=== PATIENT | male | born 1950 | race Caucasian/White ===

== ENCOUNTER 2018-10-23 13:25 | Inpatient (IN) | payer OTHER ==
[~2018-10-23] VITALS: Ht 180.3 cm; Wt 87.3 kg
--- NOTE | ~2018-10-23 | D ---
[facility] [place] [address] DISCHARGE SUMMARY Name: CHON BOYER Room #: 523B-B [facility] IN M.R.#: [id number] Admission: 10/23/18 Attend Phys: Ksihan Stevenson DO Discharge: 10/29/18 Date of : 52 Report #: [id number] THIS REPORT FOR: //name// CC: Kishan Stevenson Silvano Sheriff DATE OF SERVICE: 10/29/2018 ATTENDING PHYSICIAN: Kishan Stevenson DO ELECTROENCEPHALOGRAPH TECHNICIAN: Kishan Alberto MD DISCHARGE DIAGNOSES: Major depressive disorder, recurrent, severe degree that is improved; mild neurocognitive disorder; unspecified anxiety. He is discharged to his home. The patient is on regular diet. Aftercare is as follows: The patient is being referred to [facility] program. This will be at [facility] beginning on 10/31/2018 at 11:00 a.m. He will continue care with Ms. Naa Tripathi, psychotherapist. He is reportedly a patient of ____. DISCHARGE ACTIVITY LEVEL: As tolerated. No alcohol, no illicit drugs. MEDICATIONS: As follows: Metoprolol succinate 50 mg p.o. daily for hypertension and rate control; escitalopram 10 mg p.o. daily for anti-depression; trazodone 150 mg for sleep. We discussed progressive taper of cyanocobalamin 1000 mcg p.o. daily, lisinopril 10 mg p.o. daily, risperidone 10 mg p.o. daily, Plavix 75 mg p.o. daily, pantoprazole 40 mg p.o. daily, atorvastatin 40 mg p.o. daily. Most of those he was taking prior to admission, we did switch him from fluoxetine to Lexapro. In addition, the patient has untreated obstructive sleep apnea. This needs to be ruminative as soon as possible. The deleterious health consequences of this were discussed such as specifically how they relate to his current reasons for Psychiatric admission. REASON FOR ADMISSION: Brought to the ED complaining of depression. He has been sleeping more, had been seen in the [facility] ED for a stroke workup about 3 weeks prior. HOSPITAL COURSE: The patient was admitted to Geriatric Psychiatry Unit. The patient maintained relatively euthymic. SLUMS was done and he scored 21/30. I ____ Neuropsych testing by Dr. Marley and again mild neurocognitive disorder was diagnosed. The importance of psychotherapy ____ more intensive aftercare experience, I would like to see him in 2 weeks of PHP ____ 5 days a week. Treatment of his obstructive sleep apnea, issues like this were discussed. His son was also present for family meeting given ____ psychologist. [address] [address] DISCHARGE SUMMARY Name: RSOALINDCHON C Room #: 523B-B [facility] IN M.R.#: [id number] Admission: 10/23/18 Attend Phys: Kishan Stevenson DO Discharge: 10/29/18 Date of : 52 Report #: [id number] SIGNIFICANT LABORATORY DATA: This admission, CBC grossly normal. Chemistries: BUN was 26 on 10/23. Estimated GFR 67. Vitamin D was 41.5. B12 was 414, which was supplemented. Magnesium was 1.8. Urine was normal. There is no microbiology surrounding this admission. Serology ____ for syphilis was negative. PHYSICAL EXAMINATION: VITAL SIGNS: On the day of discharge, temperature 36.6, pulse 78, respirations 16, BP 131/94, O2 sat 95%. MENTAL STATUS EXAMINATION: This is a well-developed, mildly overweight male, wearing glasses, appearing stated age. Attention intact. Concentration intact. Speech is normal in rate, volume and tone. Mood and affect to degree flat, but not appearing overly depressed. No psychomotor agitation, no psychomotor retardation. Denied auditory, visual, or tactile hallucinations. Memory not formally tested on day of discharge. Insight fair. Judgment fair. Fund of knowledge at least average. PROGNOSIS: For this patient is fair to guarded and will depend on his willingness to participate keeps himself busy, address his health issues, also he will need a ____ neurodegenerative disorder, which he said increased risk at. By: [phone] Kishan Stevenson, DO /nt
[2018-10-23 13:27] VITALS: BP 172/105
[2018-10-23 13:59] LABS: ABSOLUTE NEUTROPHILS 4.7 thou/uL (1.4-8.2); BASOPHILS 0.5 % (0.0-2.0); EOSINOPHILS 2.7 % (0.0-3.0); HEMATOCRIT 45.9 % (42.0-52.0); HEMOGLOBIN 15.3 gm/dL (14.0-18.0); LYMPHOCYTES 18.5 % (24.0-44.0); MCH 28.8 pg (26.0-34.0); MCHC 33.3 g/dL (28.0-37.0); MCV 86.6 fL (80.0-100.0); MONOCYTES 7.7 % (1.0-8.0); PLATELET COUNT 169 thou/uL (150-400); POLYS 70.6 % (36.0-66.0); RDW 14.9 % (10.5-14.5); WBC 6.7 thou/uL (4.0-11.0)
[2018-10-23 14:03] LABS: ANION GAP 10 mmol/L (7-16); BUN 26 mg/dL (7-18); CALCIUM 9.1 mg/dL (8.5-10.1); CHLORIDE 106 mmol/L (98-107); CO2 23 mmol/L (21-32); CREATININE 1.1 mg/dL (0.7-1.3); GLUCOSE 95 mg/dL (74-106); POTASSIUM 4.2 mmol/L (3.5-5.1); SODIUM 139 mmol/L (136-145)
[2018-10-23 14:08] LABS: SALICYLATE < 2.8 mg/dL (2.8-20.0)
[2018-10-23 16:32] LABS: URINE BILIRUBIN NEGATIVE (Negative); URINE BLOOD TRACE (Negative); URINE CLARITY CLEAR; URINE COLOR YELLOW; URINE GLUCOSE-RANDOM* NEGATIVE (Negative); URINE KETONES NEGATIVE (Negative); URINE LEUKOCYTES-REFLEX NEGATIVE (Negative); URINE NITRITE-REFLEX NEGATIVE (Negative); URINE PROTEIN (DIPSTICK) NEGATIVE (Negative); URINE SPECIFIC GRAVITY 1.025 (1.005-1.035); URINE UROBILINOGEN 0.2 E.U./dl (0.2-1.0)
[2018-10-23 16:40] LABS: AMP/METHAMP Negative (Negative); BARBITURATES Negative (Negative); BENZODIAZEPINES Negative (Negative); COCAINE Negative (Negative); METHADONE Negative (Negative); OPIATES Negative (Negative); PCP Negative (Negative)
[2018-10-23] MEDS ORDERED: LISINOPRIL10 MG PO (16:53)
[2018-10-23] MEDS ORDERED: TRAZODONE 150150 M1 PO (16:53)
[2018-10-23] MEDS ORDERED: TOPROL XL25 MG PO (16:54)
[2018-10-23] MEDS ORDERED: RISPERDAL2 MG PO (16:54)
[2018-10-23] MEDS ORDERED: PROZAC20 MG PO (16:54)
[2018-10-23 17:02] VITALS: BP 169/99
--- NOTE | 2018-10-23 22:51 | NUR ---
ADMISSION NOTE: ARRIVED ON THE UNIT PER ER AND FAMILY. ALERT ET ORIENTED X 3. MAKES NEEDS KNOWN. THE PT WAS FEELING SUICIDAL BEFORE COMING HERE, HE DENIES IT AT THIS TIME. DENIES FEELING HOMICIDAL. RATES HIS ANXIETY AND DEPRESSION A 10/19. DENIES A/V HALLUNICATIONS. DENIES RACING THOUGHTS AND NIGHTMARES. HEART RATE REGULAR, LUNGS CLEAR BILATERALLY, RESP., EVEN, AND UNLABORED. +BS HEARD IN ALL 4 QUADRANTS. THE PT IS OBESE. THE PT HAD A STENT PLACED IN HIS HEART. HAS HTN, HLD, IS INDEPENDENT GOING TO THE BATHROOM. DENIES PAIN AT THIS TIME. STARTED ON 15 MINUTE CHECKS FOR HIS SAFETY.
[2018-10-23 23:14] VITALS: BP 170/90
--- NOTE | 2018-10-24 02:13 | NUR ---
THE PT DID HAVE ONE SUICIDAL ATTEMPT IN THE PAST, WAS HOSPITALIZED IN [facility] LAST FEBRUARY, HE NOW SLEEPS TILL NOON, HAS NOT BEEN TAKING CARE OF HIMSELF, NOT SHOWERING OR HAVING HAIR CUTS, HAS A DECREASED APPETITE. THE SON HAS BEEN CONCERNED REGARDING HIS FATHER, THINKING THAT HE MIGHT HARM HIMSELF. HE HAS A HISTORY OF 2 HEART SURGERIES ONE MONTH AGO, WAS AT [facility] RECENTLY REGARDING WHETHER HE HAD A STROKE OR NOT. THE PT HAS BEEN HEARING VOICES TELLING HIM THAT EVERYONE WOULD BE BETTER OFF IF HE WERE GONE. HE HAS HAD SEVERE DEPRESSION FOR THE LAST 8 MONTHS. CONTINUES ON 12 MINUTE CHECKS FOR THE PT'S SAFETY.
--- NOTE | 2018-10-24 06:38 | NUR ---
THE PT SLEPT 7.0 HOURS LAST NIGHT.
[2018-10-24 07:42] VITALS: BP 156/95
[2018-10-24 08:00] VITALS: BP 156/95
[2018-10-24] MEDS ORDERED: PLAVIX 75 MG TA75 M1 PO (09:48)
[2018-10-24] MEDS ORDERED: LIPITOR40 MG PO (09:49)
[2018-10-24] MEDS ORDERED: PROTONIX40 M1 PO (09:49)
[2018-10-24] MEDS ORDERED: FISH OIL 1,001000 M2 PO (09:50)
[2018-10-24] MEDS ORDERED: ASPIR 8181 MG PO (09:50)
[2018-10-24] MEDS ORDERED: CENTRUM SILVER1 EAC4 PO (09:51)
--- NOTE | 2018-10-24 10:14 | NUR ---
ADM AM MEDS. PT COMPLIANT WITH MEDS. PT CALLED THIS AM A FEW TIMES, TALKED TO TO GET HIS MEDS UPDATED. TOLD DR. OH ABOUT MEDS ADDED, HE IS AWARE.
--- NOTE | 2018-10-24 15:45 | NUR ---
ADM TYLENOL 325MG 2 TABS PO FOR PAIN TO TEMPORALS OF 6 ON 1-10 SCALE.
[2018-10-24 21:39] VITALS: BP 139/99
--- NOTE | 2018-10-24 22:10 | NUR ---
PT TALKING AND SMILNG WITH MALE PEERS. PT COMPLIANT WITH MEDS AND HS SNACK. STEADY GAIT, GOOD EYE CONTACT.
[2018-10-25 07:30] VITALS: BP 142/91
--- NOTE | 2018-10-25 09:12 | NUR ---
PT COOROPERATIVE WITH MEDS. PT DENIES ANY PAIN. PT STATED BM YESTERDAY. PT ORIENTED X3, PT UP WITHOUT WALKER WITH STEADY GAIT. PT LUNGS CLEAR. PT ATTENDING GROUPS.
[2018-10-25 09:20] VITALS: BP 142/91
--- NOTE | 2018-10-25 14:50 | NUR ---
John spoke with spouse Adriana [phone], and set up family meeting for Sunday at 2pm. She described a lomg HX of suicide attempts and mental illness.
[2018-10-25 19:10] VITALS: BP 144/95
--- NOTE | 2018-10-25 21:45 | NUR ---
ASSUMED CARE OF THE PT AT 191 PM. ALERT ET ORIENTED X 3. MAKES NEEDS KNOWN. HEART RATE REGULAR, LUNGS, CLEAR BILATERALLY, RESP., EVEN, AND UNLABORED. +BS HEARD IN ALL 4 QUADRANTS. +PP BILATERALLY. DENIES ANXIETY, DEPRESSED, DENIES SI AND HI AT THIS TIME. WALKS WITH A STEADY GAIT. REMAINS ON 12 MINUTE CHECKS FOR HIS SAFETY.
--- NOTE | 2018-10-26 06:00 | NUR ---
the pt slept 11 hours last night.
[2018-10-26 08:36] VITALS: BP 125/76
[2018-10-26 10:31] VITALS: BP 125/76
--- NOTE | 2018-10-26 10:36 | EKG ---
[place] [address] [facility] [place] [address] ELECTROCARDIOGRAM REPORT Name: ROSALINDCHON Room #: 52[facility] ADM IN M.R.#: [id number] Admission: 10/23/18 Attend Phys: Kishan Stevenson DO Discharge: Date of : 52 Report #: [id number] THIS REPORT FOR: //name// 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
--- NOTE | 2018-10-26 11:11 | NUR ---
ASSUMED CARE AT 0700 THIS MORNING. TOOK MORNING MEDICATIONS WITHOUT DIFFICULTY, ATE FAIR AT BREAKFAST. SAT ON UNIT DURING THE GROUP THIS MORNING, PARICIPATED A LITTLE BIT. DEIES SI/HI, AND SO S/S AVH AT THIS TIME NOTED.
[2018-10-26 19:43] VITALS: BP 140/90
--- NOTE | 2018-10-27 01:39 | NUR ---
ASSUMED CARE FROM DAY SHIFT, PT SITTING ON COUCH IN DAY ROOM WATCHING THE FOOTBALL GAME AND TAKING WITH OTHER PTS, APPEARS CALM AND CHEERFUL THIS EVENING , NO CONCERNS VOICED AT TIME OF ASSESSMENT, PO MEDICATON TAKEN , PO MEDICATION TAKEN PRESCRIBED. PT RESTING WELL THROUGHOUT FREQ ROUNDING, WILL REPORT CHANGES OR ABNORAML FINDING WILL CONTINUE WITH CURRENT PLAN OF CARE.
[2018-10-27 09:11] VITALS: BP 133/85
--- NOTE | 2018-10-27 10:22 | H ---
[facility] [place] [address] HISTORY AND PHYSICAL Name: CHON BOYER Room #: 523B-B ADM IN M.R.#: [id number] Admission: 10/23/18 Attend Phys: Kishan Stevenson DO Discharge: Date of : 52 Report #: [id number] THIS REPORT FOR: //name// CC: Kishan Stevenson Silvano Sheriff DATE OF SERVICE: 10/24/2018 PSYCHIATRIC EVALUATION ATTENDING: Kishan Stevenson DO DRILLER HELPER: Kishan Alberto MD REASON FOR ADMISSION: The patient is living with his , brought in for suicidal attempt x 1 hospitalization here since the last February, sleeping until noon, not taking care of self, not showering or doing haircuts, decreased appetite. Son was concerned for father's well-being. He has had a prior admission for depression, it is not clear at this point whether he has been diagnosed with dementia. HISTORY OF PRESENT ILLNESS: This 68-year-old male brought in for self-care failure, lives with his . The patient's medical history includes 2 heart surgeries he had 1 month ago at [facility]. Unclear if there was a stroke perioperatively. The patient was found in his bedroom, is very pleasant, he freely talks about things. He was not fully oriented to time, certainly disheveled. I discussed with him I would want to get a full possible assessment. Complaints from family including hypersomnia, poor hygiene, decreased appetite, psychomotor retardation, hearing voices telling him everyone would be better off only if he were gone. He reports these voices have been intermittent in nature. Additionally, 3 weeks ago, he was in [facility]'s ED after he experienced left arm weakness. PAST MEDICAL HISTORY: Hypertension, hyperlipidemia, sleep apnea. REVIEW OF SYSTEMS: He denies fever, chills, nausea, vomiting or diarrhea, chest pain, shortness of breath, numbness or tingling. Incidentally, it says in the ER note, the patient's son has been in contact with Dr. Stevenson, I do not remember such recall but I am glad to help him. Again, severe depression over the last 8 months, attempted suicide in 2009, no SI at this time. PAST MEDICAL HISTORY: Reviewed again, in 2006 cardiomyopathy, in 1988 laminectomy, in 1993 hernia repair, history of sleep apnea, unclear if he takes CPAP, hypertension, and high cholesterol. [address] [address] HISTORY AND PHYSICAL Name: CHON BOYER Room #: 523B-B ADM IN [facility]#: [id number] Admission: 10/23/18 Attend Phys: Kishan Stevenson DO Discharge: Date of : 52 Report #: [id number] HOME MEDICATIONS: Include trazodone, lisinopril, metoprolol. ALLERGIES: He does have one to CODEINE reaction unspecified. REVIEW OF SYSTEMS: From the ER, CONSTITUTIONAL: Denies fever, chills, malaise or unexplained weight change. EYES: Denies eye pain, visual change or discharge. HENT: Denies hearing changes, ear drainage, ear infections, ear pain, neck pain or neck stiffness. RESPIRATORY: Denies cough, shortness of breath, hemoptysis or respiratory distress. GASTROINTESTINAL: Denies abdominal pain, nausea, vomiting or diarrhea. GENITOURINARY: Denies burning, frequency or dysuria. MUSCULOSKELETAL: Denies back pain, joint pain, muscle weakness or myalgias. SKIN: Denies rash. NEUROLOGIC: Denies weakness, headache, loss of consciousness. PSYCHIATRIC: As above. Otherwise, 10-point review of systems negative. PHYSICAL EXAMINATION: Grossly normal. LABORATORY DATA: BMP was within normal limits. Magnesium wnl, creatinine 1.1, estimated GFR 67, glucose 95, calcium 9.1. On the blood count, white count 6.7, H and H 15.3 and 45.9, platelets 159,000. UDS is negative. Tox screen negative. Urinalysis showed trace blood, otherwise negative. PHYSICAL EXAMINATION: Fairly normal gait. MENTAL STATUS EXAMINATION: This is a well-developed, overweight male, appearing stated age. Attention fair. Concentration fair. Speech tends to ruminate. Thought process is linear, focused on the present. Psychomotor retardation and psychomotor agitation. Denied SI or HI, hopelessness, helplessness. Memory not formally tested. Insight limited. Judgment limited. Fund of knowledge, no greater than average. FORMULATION: A 68-year-old male presenting for psychiatric hospitalization due to impaired behavior, . Major neurocognitive disorder, likely due to Alzheimer disease, coronary artery disease, stable. PLAN: Evaluate, stabilize, obtain collateral. DISCHARGE MEDICATIONS: As already mentioned. STRENGTHS: He is insured, has supportive family. [facility] [address] [facility] [place] [address] HISTORY AND PHYSICAL Name: CHON BOYER Room #: [facility] IN M.R.#: [id number] Admission: 10/23/18 Attend Phys: Kishan Stevenson DO Discharge: Date of : 52 Report #: [id number] WEAKNESSES: Advancing age, probable major neurocognitive disorder, aside from Alzheimer's, FTD would be in differential. STRENGTHS: Supportive family and insurance. WEAKNESSES: As described, advancing age and current illness. Regarding his in-hospital medications, I would like to see if we can get them maximized so there is no extra pharmacy. It looks like he was getting some Risperdal, there is room to go up on it, reevaluate that tomorrow. <ELECTRONICALLY SIGNED> By: Kishan Stevenson DO 10/27/18 1022 [id number] Kishan Stevenson DO /nt
[2018-10-27 11:42] VITALS: BP 133/85
--- NOTE | 2018-10-27 11:46 | NUR ---
ASSUMED CARE OF PT. AT 0700 THIS MORNING. ON UNIT FOR MEALS. ASKING TO SHAVE, BUT NO RAZORS ON THE UNIT THIS MORNING. WILL ATTEMPT TO ACQUIRE ONE. COOPERATIVE WITH TAKING MEDICATIONS. ATTENED MORNING GROUPS. DENIES SI/HI, AND NO S/S AVH. INTERACTS VERY LITTLE WITH OTHERS, SITS ALONE BY SELF AT BACK TABLE.
[2018-10-27 20:12] VITALS: BP 174/102
[2018-10-27 22:38] VITALS: BP 160/84
--- NOTE | 2018-10-28 00:48 | NUR ---
PATIENT WAS UP IN MAIN DINING ROOM WHEN THIS NURSE CAME ON SHIFT. HE STAYED TO HIMSELF AND WATCHED THE OTHER PEOPLE AND TV. HE HAS BEEN ALERT AND ORIENTED X3 AND TOOK HIS MEDS WITHOUT DIFFICULTY. NO BEHAVIORS NOTED . PATIENT HAD 100%HS SNACK AND WENT TO BED. DENIES PAIN. PATIENT SLEEPING AT THIS TIME.
[2018-10-28 09:39] VITALS: BP 138/98
--- NOTE | 2018-10-28 13:44 | NUR ---
DENIES THOUGHTS OF HARMING SELF OR OTHERS. PARTICIPATING IN GROUPS & OUT TO DINING ROOM FOR MEALS & THROUGHOUT DAY. NOT INTERACTIVE WITH OTHER PATIENTS. EVALUATED FOR NEURO TESTING THIS SHIFT, RESULTS NOT IN OF THIS TIME.
[2018-10-28 19:57] VITALS: BP 146/102
--- NOTE | 2018-10-28 23:06 | NUR ---
VISITED WITH PATIENT AYE DURING ASSESSMENT AND MED PASS. PATIENT CONTINUES TO ASK FOR HIS TRAZADONE 150MG PRN TO HELP WITH SLEEP AT NIGHT. HIS DID CALL [facility] AND HE SAID THEY HAD A GOOD CONVERSATION. HE DENIES PAIN. HE STATES HE WILL BE GLAD WHEN HE GETS HIS "HEAD RIGHT." HE STATES HE HAS DEALT WITH DEPRESSION FOR A LONG TIME. HE FEELS HE IS IMPROVING AND HE HOPES IT CONTINUES. HE STATES THAT SLEEP HAS HELPED HIM ALOT. HE SAT OUT IN DINING ROOM AND WATCHED THE [employer] GAME WITH OTHER PATIENTS. HE STAYS TO HIMSELF BUT IS A/O X 3 AND COOPERATIVE. RECHECKED HIS BP MANUALLY SINCE THE ONE WITH THE MACHINE WAS 146/102. ON RECHECK MANUALLY IT IT WAS 140/78. PT APPEARS MORE RELAXED AND NOT LOOKING DEPRESSED. HE IS RESPONDING MORE READILY TO CONVERSATION AND IS PLEASANT. PATIENT SLEEPING AT THIS TIME IN HIS ROOM. HE CONTINUES EYE GTTS FOR BILATERAL RED AND MATTING EYES. HE STATES THEY ARE NOT HURTING LIKE THEY WERE. STILL WITH YELLOW SLEEP IN THE LASHES. CONTINUE EYE GTTS QID.
[2018-10-28 23:43] VITALS: BP 140/78
--- NOTE | 2018-10-29 04:08 | NUR ---
PATIENT HAS BEEN SLEEPING SOUNDLY TONIGHT. PATIENT HAS HAD PERIODS OF LOUD SNORING AND THEN SOUND SLEEP. HE HAS BEEN REPOSITIONING HIMSELF IN BED. PATIENT DOES NOT SEEM TO BE IN DISTRESS. APPEARS COMFORTABLE.
--- NOTE | 2018-10-29 09:38 | NUR ---
0700: Report from [facility] shift, care assumed. [id number]: Ambulatory independently in room, halls and to DR, gait steady. Feeds self, appetite good, takes meds whole w/o difficulty. Mood is quiet, secludes self from others in DR, attends therapy group with paticipation noted. Denies pain or discomfort with assessment.
[2018-10-29] MEDS ORDERED: METOPROLOL SUCC50 MG PO (13:29)
[2018-10-29] MEDS ORDERED: LEXAPRO 10 MG T10 M1 PO (13:30)
[2018-10-29] MEDS ORDERED: TRAZODONE 150150 M1 PO (13:31)
[2018-10-29] MEDS ORDERED: B-12500 MCG PO (13:32)
[2018-10-29 16:03] VITALS: BP 131/94
--- NOTE | 2018-10-29 16:27 | NUR ---
DAVE and Dr. stevenson met with the family to discuss the pt going home today with the php. DAVE mention that she was going call [facility] or [facility] to see if pt would be accepted into the there program. DAVE called in schedule appointment on October 31, 2018 at 11:00 am. DAVE provided this information to the pt Adriana. DAVE left a voicemail for Dr. Cooper office to confirm appointment with therapist. DAVE provided contact information in requested a phone call back. Dr. Stevenson provide medication list. Dr. Stevenson mention it is imperative that he follow-up with his psychiatrist and primary. Dr. stevenson mention after the Php program is completed that pt should utilize PT/OT to build up his strength. DAVE provided a list of programs that assist with Rehab. DAVE will follow-up with pt.
[2018-10-29 16:40] VITALS: BP 131/94
--- NOTE | 2018-10-29 16:41 | NUR ---
Patient Name: CHON BOYER Admission Date: 10/23/18 DISCHARGE PLAN: Pt will be d/c home with his . Care Assessment: Pt was assessed by Dr. Stevenson, and diagnosed with Severe, Major Depressive Disorder. Level II Assessment: None Transportation: Pt will be transported by his son, and . Special Instructions/Notes: Pt will need conitnuance care with Dr. Cooper, and his thaerapist Ms. Sorto. Pt will need to retain his appointment with [facility] that schedule on October 31, 2018 at 11:00am. DISCHARGE TO FACILITY: Facility: Phone: Fax: Address: Contact Name: Phone: PCP: JEREMIAS Psychiatrist: [facility] outpatient service on October 31, 2018 at 11:00am.
[2018-10-29 17:06] LABS: SYPHILIS AB Negative (Negative)
== END 2018-10-29 18:34 | disposition home or self-care (01) | DRG 885 ==
LOC: ER 13:25 → EROBS 16:00 → SBH 16:00
PROVIDERS: Emergency Medicine; ADMIT Psychiatry & Neurology Psychiatry
DX: F33.2 Major depressive disorder, recurrent severe without psychotic features (principal); I42.9 Cardiomyopathy, unspecified; R45.851 Suicidal ideations; F01.50 Vascular dementia, unspecified severity, without behavioral disturbance, psychotic disturbance, mood disturbance, and anxiety; I10 Essential (primary) hypertension; E78.5 Hyperlipidemia, unspecified; I25.10 Atherosclerotic heart disease of native coronary artery without angina pectoris; G47.30 Sleep apnea, unspecified; F41.9 Anxiety disorder, unspecified; E78.00 Pure hypercholesterolemia, unspecified; Z79.899 Other long term (current) drug therapy; Z88.5 Allergy status to narcotic agent; Z88.8 Allergy status to other drugs, medicaments and biological substances
CPT/HCPCS: 10880

== ENCOUNTER 2021-01-21 15:09 | Inpatient (IN) | payer OTHER ==
[~2021-01-21] VITALS: Ht 180.3 cm; Wt 100.2 kg
--- NOTE | ~2021-01-21 | EMS ---
[place] [address] EMS Patient Care Report Name: CHON BOYER Room #: 438-P ADM IN M.R.#: [id number] Admission: 01/21/21 Attend Phys: Curt Merritt, Discharge: Date of : 52 Report #: [id number] THIS REPORT FOR: //name// Report Transmitted: 01/24/2021 11:58 EMS Care Summary [place], [place] Incident [id number] @ 01/21/2021 14:28 Incident Location [address] [id number] Patient CARIDAD BOYER Male, 70 Years 1950 Patient Address [address] [place] [address] Patient History Hypertension (HTN), Patient Allergies No known allergies, Patient Medications ASA, Chief Complaint knee injury Disposition Transported No Lights/[place] Transported To [facility] Narrative pt found sitting upright on front porch and alert. pt a&ox4 gcs 15 and did not present in apparent distress. pt stated he tripped and fell and hit his R knee on the sidewalk. neg loc. pt denies hitting his head. neg blood thinners. pt stated his r knee was in too much pain for him to stand and [place] [address] EMS Patient Care Report Name: CHON BOYER Room #: 438-P [facility] IN [facility]#: [id number] Admission: 01/21/21 Attend Phys: Curt Merritt, Discharge: Date of : 52 Report #: [id number] porch. pt initially requested for ems to assist him into bed. ems assisted pt upright. pt stated his R knee hurts too much to put weight on it and pt was not able to stand independently. ps family brought pt a chair per ems request. pt sat on chair on porch. ems advised pt that if hes not able to walk independently and cant bare weight he may be a fall risk and it would be in the pts best interest to be seen at the er. pt agreed. pt agreed to be transported to [facility]. ems cot was brought to pt. pt was transferred onto ems cot and pt was secured in a semi fowlers position without incident. Initial Vitals @14:52P: 82,R: 20,BP: 174/100,Pain: 0/10,GCS: 15,SpO2: 98,Revised Trauma: 12, @14:58P: 76,R: 20,BP: 156/90,GCS: 15,SpO2: 98,Revised Trauma: 12, Assessments @14:38MENTAL:No Abnormalities,SKIN:No Abnormalities,HEENT:Head/Face: No Abnormalities,Eyes: No Abnormalities,Neck/Airway: No Abnormalities,LUNG SOUNDS:General: No Abnormalities,Left Upper: No Abnormalities,Right Upper: No Abnormalities,Left Lower: No Abnormalities,Right Lower: No Abnormalities,ABDOMEN:General: No Abnormalities,Left Upper: No Abnormalities,Right Upper: No Abnormalities,Left Lower: No Abnormalities,Right Lower: No Abnormalities,PELVIS//GI:No Abnormalities,EXTREMITIES:Left Arm: No Abnormalities,Right Arm: No Abnormalities,Left Leg: No Abnormalities,Right Leg: No Abnormalities,PULSE:NEURO:No Abnormalities,@14:49MENTAL:No Abnormalities,SKIN:No Abnormalities,HEENT:Head/Face: No Abnormalities,Eyes: No Abnormalities,Neck/Airway: No Abnormalities,LUNG SOUNDS:General: No Abnormalities,Left Upper: No Abnormalities,Right Upper: No Abnormalities,Left Lower: No Abnormalities,Right Lower: No Abnormalities,ABDOMEN:General: No Abnormalities,Left Upper: No Abnormalities,Right Upper: No Abnormalities,Left Lower: No Abnormalities,Right Lower: No Abnormalities,PELVIS//GI:No Abnormalities,EXTREMITIES:Left Arm: No Abnormalities,Right Arm: No Abnormalities,Left Leg: No Abnormalities,Right Leg: No Abnormalities,PULSE:NEURO:No Abnormalities, Impression Extremity Pain Procedures @14:38 ALS Assessment Response: UnchangedSucceeded Timeline 14:26,Call Received 14:26,Dispatch Notified 14:28,Dispatched 14:28,En Route 14:37,On Scene [address] [address] EMS Patient Care Report Name: CHON BOYER Room #: 438-P ADM IN M.R.#: [id number] Admission: 01/21/21 Attend Phys: Curt Merritt, Discharge: Date of : 52 Report #: [id number] 14:38,At Patient 14:38,ALS Assessment,Response: UnchangedSucceeded, 14:48,Depart Scene 14:52,BP: 174/100 M,PULSE: 82,RR: 20 R,SPO2: 98 Ox,ETCO2: ,BG: ,PAIN: 0,GCS: 15, 14:58,BP: 156/90 M,PULSE: 76,RR: 20 R,SPO2: 98 Ox,ETCO2: ,BG: ,PAIN: ,GCS: 15, 14:59,At Destination 15:08,Call Closed Disclaimer v1.1 Copyright 2020 [employer] This EMS Care Summary contains data elements from the applicable legal record (which may be displayed differently). It is designed to provide pertinent information for the following purposes: continuity of care, clinical quality, and state data reporting. The complete legal record is available to ED staff and administrators of the receiving hospital in ES's Patient Tracker. All data is provided "as is."
[~2021-01-21 15:09] MED LIST: ASPIR 8181 MG PO; B-12500 MCG PO; CENTRUM SILVER1 EAC4 PO; FISH OIL 1,001000 M2 PO; LEXAPRO 10 MG T10 M1 PO; LIPITOR40 MG PO; LISINOPRIL10 MG PO; METOPROLOL SUCC50 MG PO; PLAVIX 75 MG TA75 M1 PO; PROTONIX40 M1 PO; PROZAC20 MG PO; RISPERDAL2 MG PO; TOPROL XL25 MG PO; TRAZODONE 150150 M1 PO
[2021-01-21 15:22] VITALS: BP 129/80
[2021-01-21 15:47] LABS: ABSOLUTE NEUTROPHILS 4.7 thou/uL (1.4-8.2); BASOPHILS 0.5 % (0.0-2.0); EOSINOPHILS 3.3 % (0.0-3.0); HEMOGLOBIN 14.8 gm/dL (14.0-18.0); LYMPHOCYTES 17.3 % (24.0-44.0); MCH 29.3 pg (26.0-34.0); MCHC 33.7 g/dL (28.0-37.0); MONOCYTES 7.3 % (1.0-8.0); PLATELET COUNT 170 thou/uL (150-400); POLYS 71.6 % (36.0-66.0); RBC 5.06 mil/uL (4.50-6.00); RDW 14.7 % (10.5-14.5); WBC 6.5 thou/uL (4.0-11.0)
[2021-01-21 15:56] LABS: CALCIUM 8.9 mg/dL (8.5-10.1); CREATININE 1.3 mg/dL (0.7-1.3); POTASSIUM 3.8 mmol/L (3.5-5.1)
[2021-01-21 19:58] VITALS: BP 143/105
[2021-01-21 20:18] VITALS: BP 162/102
[2021-01-21 21:07] VITALS: BP 156/105
[2021-01-21 23:52] VITALS: BP 109/79
--- NOTE | 2021-01-22 03:10 | NUR ---
RECEIVED CARE OF THIS PATIENT AT 2030 FROM ED VIA CART ACCOMPANIED BY ED PERSONEL, AND SON. PATIENT ALERT AND ORIENTED X4. ANXIOUS ABOUT SURGERY TOMORROW. BED REST D/T BROKEN LEG. NPO SINCE [place] FOR SURGERY. IV PATENT IN RH WITH FLUIDS INFUSING. SLEPT MOST OF NIGHT. PAIN MED GIVEN WHEN ARRIVED ON UNIT BUT DENIES PAIN AFTER THAT.
[2021-01-22 04:08] VITALS: BP 96/65
--- NOTE | 2021-01-22 07:05 | EKG ---
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 : 1950 Requested By: Ronald Curtis Order Number: [id number] MD: Gordy Christensen Measurements Intervals [place] Rate: 69 P: 14 CO: 185 QRS: 27 QRSD: 122 T: 103 QT: 418 QTc: 448 Interpretive Statements Sinus rhythm IVCD, consider atypical LBBB Compared to ECG 10/25/2018 13:15:00 Sinus bradycardia no longer present Electronically Signed On 01-22-2021 7:05:18 PEST LOCATOR by Gordy Christensen [email or web address] <ELECTRONICALLY SIGNED> By: Gordy Christensen MD, [facility] 01/22/21 0705 38 Gordy Christensen MD, FACC /EPI
[2021-01-22 08:43] VITALS: BP 124/68
--- NOTE | 2021-01-22 09:11 | 2DMMODE ---
[facility] [place] [address] 2 D/M-MODE ECHOCARDIOGRAM Name: ROSALINDCHON Patrice Room #: 438-P ADM IN M.R.#: [id number] Admission: 01/21/21 Attend Phys: Curt Merritt, Discharge: Date of : 52 Report #: [id number] THIS REPORT FOR: cc: Silvano Sheriff Cory T. DO Santiago, Patrick MD [facility] ~ APPROVED REPORT Study performed: 01/22/2021 09:30:58 EXAM: Comprehensive 2D, Doppler, and color-flow Echocardiogram Patient Location: Bedside Room #: 438 Status: on-call BSA: 2.18 HR: 66 bpm BP: 124/68 mmHg Rhythm: Sinus arrhythmia Other Information Study Quality: Fair/not all measurements taken Technically limited study due to patient laying right side; unable to position properly, body habitus. Indications Pre-Op knee surgery. Hx: CAD, stents, AVR, cardiomyopathy. 2D Dimensions IVSd: 14.01 (7-11mm) LVDd: 47.25 mm PWd: 13.80 (7-11mm) LVDs: 32.87 (25-40mm) Aortic Valve AoV Peak Jaskaran.: 2.22 m/s AO Peak Gr.: 19.76 mmHg LVOT Max P.50 mmHg AO Mean Gr.: 8.02 mmHg AO V2 Mean: 1.26 m/s LVOT Max V: 0.79 m/s AO V2 VTI: 36.76 cm Mitral Valve E/A Ratio: 0.5 MV Decel. Time: 266.45 ms [facility] [address] [place] [address] 2 D/M-MODE ECHOCARDIOGRAM Name: CHON BYOER Room #: 438-P [facility] IN [facility]#: [id number] Admission: 01/21/21 Attend Phys: Curt Morley Discharge: Date of : 52 Report #: [id number] MV E Max Jaskaran.: 0.57 m/s MV A Jaskaran.: 1.05 m/s MV PHT: 77.27 ms Pulmonary Valve PV Peak Jaskaran.: 1.03 m/s PV Peak Gr.: 4.27 mmHg Tricuspid Valve TR Peak Jaskaran.: 2.87 m/s TR Peak Gr.: 33.00 mmHg Left Ventricle The left ventricle is normal size. Moderate concentric left ventricular hypertrophy. Left ventricular systolic function is normal. LVEF is 50-55%. Mild diastolic dysfunction is present (impaired relaxation pattern). Right Ventricle The right ventricle is normal size. The right ventricular systolic function is normal. Atria The atria appear normal in size. Aortic Valve Difficult to visualize. History of bioprosthetic AV replacement. Peak pressure gradient 20mmHg; mean 8mmHg. No aortic regurgitation noted. Mitral Valve The mitral valve is normal in structure. Mild mitral annular calcification. Trace mitral regurgitation. Tricuspid Valve The tricuspid valve is normal in structure. Mild tricuspid regurgitation. Estimated PAP is 33mmHg plus the right atrial pressure. Pulmonic Valve Pulmonic valve poorly visualized. Trace pulmonic regurgitation. Great Vessels The aortic root is normal in size. IVC is poorly visualized. [facility] [address] [place] [address] 2 D/M-MODE ECHOCARDIOGRAM Name: CHON BOYER Room #: 438-P [facility] IN [facility].#: [id number] Admission: 01/21/21 Attend Phys: Curt Morley Discharge: Date of : 52 Report #: [id number] Pericardium There is no pericardial effusion. <Conclusion> Normal left ventricle size with moderate concentric hypertrophy Ejection fraction 55% Grade 1 diastolic dysfunction Right ventricle appears to be normal in size and function Normal atrial size Aortic valve not well seen, history of bioprosthetic aortic valve Aortic valve appears to be functioning appropriately with a mean gradient of 8 mmHg Mild mitral annular calcification Mild tricuspid valve insufficiency Pulmonary systolic pressure estimated 33 mmHg No pericardial effusion Normal aortic root size <ELECTRONICALLY SIGNED> By: Gordy Chritsensen MD, FACC 01/22/21910 0 0911 Gordy Christensen MD, FACC /INF
[2021-01-22 15:00] VITALS: BP 119/70
[2021-01-22 15:15] VITALS: BP 107/77
--- NOTE | 2021-01-22 15:39 | NUR ---
PT WENT TO OR AT 0930 AND RETURNED TO ROOM AT 1500. PT DROWSY BUT AROUSES EASILY. PT REORIENTED TO EVENTS AND SURROUNDINGS. REC ROOM RN STATES PT VERY SEDATED AFTER HAVING FENTANYL IN REC ROOM. AT BEDSIDE. VSS. RT HERE TO PLACE PT ON CPAP HE LEFT HIS MACHINGE AT HOME AND HE'S MOUTH BREATHING WHILE SLEEPING. WILL CONTINUE TO MONITOR PT CLOSELY.
--- NOTE | 2021-01-22 15:58 | NUR ---
PT NOT WANTING TO USE OUR CPAP AND WAS PULLING AT MASK. MORE AWAKE NOW. USING O2 2L NC.
--- NOTE | 2021-01-22 18:30 | NUR ---
PT MORE AWAKE NOW AND REMEMBERING EVERYTHING. PAIN PILL GIVEN W/ GOOD RELIEF. RT KNEE DSNG DRY. POLAR MC IN PLACE. SCD TO LT LEG. PT ON BEDREST TODAY AND WILL GET UP W/ THERAPY IN AM. IV FLUIDS INFUSING. ANTIBIOTIC GIVEN.
[2021-01-22 20:45] VITALS: BP 136/76
--- NOTE | 2021-01-23 03:21 | NUR ---
ASSUMED CARE OF PT AT 1900. BEDSIDE REPORT RECIEVED. TRI ASSESSMENT COMPLETE. PT AOX3-4. C/O RLE PAIN. RLE IN IMMOBILIZER C POLAR PACK IN PLACE. PT VOIDING AFTER SURGERY C NO DIFFICULTIES. MEDS GIVEN PER MAR, PAIN MEDS GIVEN ACCORDINGLY. R HAND PIV PATENT, SECURE, C IVF INFUSING PER MAY. Q2 REPOSITIONING FOR COMFORT. NWB TO RLE. CONTINOUS PULSE OX IN PLACE. HOURLY ROUNDING CONTINUING. ALL NEEDS MET, CALL LIGHT IN REACH
[2021-01-23 05:39] LABS: CALCIUM 7.6 mg/dL (8.5-10.1); CREATININE 1.1 mg/dL (0.7-1.3); POTASSIUM 3.4 mmol/L (3.5-5.1)
[2021-01-23 08:24] VITALS: BP 108/63
[2021-01-23 08:35] VITALS: BP 144/94
--- NOTE | 2021-01-23 08:39 | O ---
[facility] [place] [address] [place] [address] OPERATIVE REPORT Name: CHON BOYER Room #: 438-P ADM IN M.R.#: [id number] Admission: 01/21/21 Attend Phys: Curt Merritt, Discharge: Date of : 52 Report #: [id number] THIS REPORT FOR: cc: Silvano Sheriff Cory T. DO McCabe, Michael P. MD ~ DATE OF SERVICE: 01/22/2021 SERVICE: Orthopedics. FACILITY: [facility]. SURGEON: Eric Agrawal MD TEXTILE MACHINE MAINTENANCE MECHANIC: SANDIE Mccray INDICATIONS FOR TEXTILE MACHINE MAINTENANCE MECHANIC: Exposure, retraction, provisional fixation, definitive fixation, and wound closure. PREOPERATIVE DIAGNOSES: Status post fall, displaced bicondylar right intraarticular tibial plateau fracture. POSTOPERATIVE DIAGNOSES: Status post fall, displaced bicondylar right intraarticular tibial plateau fracture. PROCEDURES PERFORMED: Open reduction and internal fixation, right bicondylar tibial plateau fracture with fixation of medial and lateral condyles. COMPLICATIONS: None. DRAINS: None. SPECIMENS: None. ANESTHESIA: General. FINDINGS: Synthes medial and lateral proximal tibial plate with proximal locking screws and 5 mL of Norian injectable bone substitute. HISTORY: The patient is a 70-year-old gentleman who was walking out through the street corner with some trash yesterday, he got lightheaded, fell and sustained a displaced bicondylar right tibial plateau fracture. He was presented to the Emergency Room where he was indicated for surgical treatment. The risks, benefits, alternatives and indications for surgery were discussed with him in detail and he gave full informed consent and wished to move forward with definitive surgical treatment. Risks include but not limited to pain, bleeding, [facility] [address] [place] [address] OPERATIVE REPORT Name: JACEKKaiCHON Patrice Room #: 438-P [facility] IN ..#: [id number] Admission: 01/21/21 Attend Phys: Curt Merritt, Discharge: Date of : 52 Report #: [id number] infection, injury to nerves or blood vessels, malunion, nonunion, need for further surgery, arthritis as well as complications related to anesthesia up to including mortality. Despite the risks, he wished to proceed. PROCEDURE IN DETAIL: After right lower extremity was correctly identified in the preoperative holding area as the operative extremity, the patient was taken to the operating room where general anesthesia was induced without complications. He was padded appropriately. Prophylactic antibiotics were administered. After appropriate time, tourniquet was applied to right leg. He was padded appropriately. Right lower extremity was then prepped and draped in standard sterile fashion. Timeout procedure performed. Esmarch was used, tourniquet inflated to 300 mmHg. Initial assessment of the alignment was performed. I studied the CT scan at that time and anticipated a medial and lateral plate and due to the fracture having fallen into varus, I proceeded with the reduction and provisional fixation medially first. Medial approach was made. Full thickness skin flaps were developed. The saphenous vein was ligated on the exposure due to its proximity and presents blocking access to the tibia. Soft tissue stripping of the bone was minimized in order to reduce the risk of nonunion and bone. The fracture was visualized. It was gapped open, the hematoma egressed and then it was suctioned. I then performed reduction maneuver pulling traction and placing a valgus stress and this improved the alignment and I checked x-ray with a plate on provisionally and then determined the appropriate ideal placement for the plate and then fixed the plate to the shaft portion of the fracture with a nonlocking screw that compressed the plate down to bone positioning both the plate and the proximal fragment such that when the plate compressed to the bone, it reduced the fracture along the medial cortex with some anatomic reduction. This screw that was by necessity longer in order to reduce the plate to the bone was later changed to a shorter screw that fit the width of the tibia appropriately so as to allow for placement of the lateral plate. This was done after satisfactory shaft fixation had been achieved x3 cortical nonlocking screws and then a locking screw was placed into the metaphyseal segment proximally, which held it in good and this was left short so as to avoid interfering with the lateral plate hardware. A curved incision was then made over the lateral aspect of the knee. Dissection was taken down to the anterior compartment. The anterior compartment fascia was incised and then the musculature was bluntly dissected off of the lateral cortex of the tibia until the fracture was visualized and we continued the soft tissue dissection proximally. The IT band insertion on Gerdy's tubercle was incised in line with the fibers and the portion was reflected anteriorly and then a portion posteriorly in a subperiosteal fashion off the bone until the joint level was accessed. The knife was passed parallel to the articular surface performing a submeniscal arthrotomy to ensure that we had appropriate visualization of the [facility] [address] [place] [address] OPERATIVE REPORT Name: CHON BOYER Room #: 438-P [facility] IN M.R.#: [id number] Admission: 01/21/21 Attend Phys: Curt Merritt, Discharge: Date of : 52 Report #: [id number] articular surface to avoid any intraarticular penetration of the hardware. The x-ray was used to assist in plate selection and then this also had a metaphyseal exit that was displaced in a shortening fashion and so a varus and traction reduction maneuver was able to be achieved to anatomically align the lateral cortex fragment. The plate was in a similar fashion used to reduce the fracture where it was compressed to the bone distally on to the shaft segment and utilizing the plate in a buttress fashion to compress the metaphysis. Before proximal fixation was placed, I used the periarticular reduction clamp and clamped across both plates utilizing screw holes and closing down the intracondylar split and using x-ray to confirm appropriate appearance. The plate was sitting best in a slightly posterior position, so the screws were placed with this in consideration to avoid posterior penetration. After satisfactory fixation was achieved on the shaft, I then worked with proximal locking screws using C-arm to set final screws length and provide total of 5 proximal locking screws. The top row was placed in a rafter fashion, supporting the articular surface of both the medial and lateral tibial plateau. After these screws had been satisfactorily placed, I drilled the kickstand screw and this accessed the main defect in the metaphysis, so plans were made to place the Norian through this screw hole defect and then placed the screw back in at the conclusion of the procedure. I turned attention towards the medial side once again and then placed the proximal locking screws in the plate as well as assessed the kickstand screw on the medial plate. I did not want to put a longer screw here because I was concerned that it would interfere with the lateral kickstand screw, which needed to be left open until after the bone substitute had been placed in the cavity. I was happy with the stability and alignment, so left the locking medial condylar kickstand screw. I tightened all screws on the medial side and then proceeded with final fixation and bone grafting on the lateral side. Using C-arm to guide the Norian injection, a syringe was placed into the defect and then it was backed out as the substance was injected. It was noted to fill the defect on the fluoroscopy and then when this was completely full, I placed the lateral metaphyseal kickstand screw into the plate. All screws were tightened laterally. Note that one cortical nonlocking screw on the shaft distally did not have excellent bicortical purchase due to it contacting the plate on the medial side, so I placed an additional locking screw here on the lateral plate to ensure that we had satisfactory fixation. The wounds were then thoroughly irrigated. The anterior compartment was repaired over the plate. The medial soft tissues were repaired over the plate with 0 Vicryl sutures and then the skin was closed with 2-0 Vicryl and skin sarah. Aquacel dressings were applied followed by sterile dressing, a thigh-high compression stocking, a PolarCare device and a knee immobilizer. The patient was awakened from anesthesia and taken to [address] [address] OPERATIVE REPORT Name: CHON BOYER Room #: 438-P [facility] IN M.R.#: [id number] Admission: 01/21/21 Attend Phys: Curt Merritt, Discharge: Date of : 52 Report #: [id number] recovery room in stable condition. He will be nonweightbearing to the right lower extremity for 3 months. We will start early an aggressive range of motion, however, to avoid stiffness and maintain nourishment of the articular cartilage. <ELECTRONICALLY SIGNED> By: Eric Agrawal MD 01/23/21 0839 [id number] [id number] Eric Agrawal MD /nt
--- NOTE | 2021-01-23 10:59 | NUR ---
ASSUMED PT CARE THIS AM. PT IS ALERT & ORIENTED X4. PT HAS IV SITE ON R HAND RUNNING NS @100ML/HR. PT TOLERATED DIET AND MEDICATION WELL. NO C/O OF NAUSEA AND VOMITING. PT RATED 7/10 R LEG AND GIVEN PAIN MEDICATION PER PT REQUEST. PT IS RA DURING DAY AND USES 2L AT NIGHT. PT HAS POLAR CARE AND IMMOBILIZER ON R LEG. WILL CONTINUE TO MONITOR PT. FOLLOW POC.
[2021-01-23 19:20] VITALS: BP 102/51
[2021-01-23 20:34] VITALS: BP 102/51
--- NOTE | 2021-01-24 01:59 | NUR ---
UPON SHIFT REPORT, PT REPORTS 5/10 PAIN IN RLE AND NAUSEA WITHOUT EMESIS. PT RECEIVING PRN PO OXYCODONE Q4HR AND PRN IV ZOFRAN Q6HR PRIOR TO START OF SHIFT. ONCALL FARM HELPER NOTIFIED, EMAR UPDATED. UPON SHIFT ASSESSMENT, PT AOX4, INTERMITTENTLY FORGETFUL, NOTABLY LETHARGIC. PT CONTINUES TO REPORT 5/10 PAIN IN RLE. PT RECEIVING PRN PO FLEXERIL Q8HR WITH PRN IV MORPHINE Q3HR AVAILABLE. PT DENIES SOB WHILE ON 2L O2 VIA NC, NOTED TO HAVE SOB WITH EXERTION AND NOTED TO DESATURATE ON ROOM AIR INTO THE 80S. PT TOLERATING PO INTAKE OF FLUIDS AND REGULAR DIET WITHOUT ISSUE. PT VOIDING PER URINAL, RESTING IN BED OTHERWISE. FREQUENT REPOSITIONING ENCOURAGED WHILE IN BED, REPOSITIONING ASSISTANCE PROVIDED, INTERMITTENTLY REFUSED DUE TO PT COMFORT PREFERENCES. PT REPORTS TINGLING OF LEFT HAND/FINGERS. CAPILLARY REFILL LESS THAN 3SEC, PERIPHERAL PULSES PALPABLE IN ALL EXTREMITIES. PT ENCOURAGED TO NOTIFY STAFF FOR ALL NEEDS, CALL LIGHT WITHIN REACH, BED ALARM ON, BED LOCKED IN LOWEST POSITION, FREQUENT MONITORING WILL CONTINUE.
[2021-01-24 04:43] VITALS: BP 124/66
[2021-01-24 08:00] VITALS: BP 128/73
--- NOTE | 2021-01-24 08:25 | NUR ---
RECEIVED RPT FROM NOC RN. PT RETAINING 800MLS URINE. DR. OH NOTIFIED AND ORDER TO PLACE BROOKS. BROOKS PLACED W/O DIFFICULTY AND CLEAR YELLOW URINE FLOWED EASILY. APPRO 1000 RETURNED. PT ASSESSED. DENIES PAIN UNLESS RT LEG REPOSITIONED. NO CONFUSION AT THIS TIME. CALLED THIS AM TO REPORT PT CALLED HER AND THOUGHT HE WAS IN THE HOSPITAL BASEMENT. SITTING UPRIGHT IN BED READY FOR BKFT.
[2021-01-24 11:25] LABS: HEMATOCRIT 34.1 % (42.0-52.0); MCHC 32.9 g/dL (28.0-37.0); MCV 88.2 fL (80.0-100.0); RBC 3.87 mil/uL (4.50-6.00); WBC 7.8 thou/uL (4.0-11.0)
[2021-01-24 11:35] LABS: HEMOGLOBIN 11.2 gm/dL (14.0-18.0)
--- NOTE | 2021-01-24 12:27 | NUR ---
Chart review Right Tibial plateau fracture. He fell onto his right knee while carrying some boxes. He had pain in the right knee and came to ed . He had an ORIF R bicondylar tibial plateau fx. Continue routine postop care, including ice machine and PT. Cont. JOVANA hose on surgical side for 2 weeks. Abbi dressings stays in place for 1 week then can be changed at his post-op visit with Dr. Agrawal. Continue knee immobilizer, NWB. Continue PT eval - decide on rehabs vs HH. plan to aspirate tomorrow per Ortho. CM consulted for discharge planning. Cm visited with macey and his adriana, while she was at bedside. He is A & o x 4, and able to make his needs known. They live in house 3 steps to enter, no steps inside. 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 He cooks, cleans. No home health or rehab in the past. Adriana has dme he can use. Have canes, different types of walker and a wheel chair that she doesnt use right now. per macey and adriana. Education on hh vs skilled rehab. Will only agree go the acute rehab or home health, will not go to a custodial for therapy, had a bad experience in past with skilled rehab and they will not agree to skilled rehab. Education on 5N, new orders for consult. Adriana asked if he could go to [facility] acute rehab if he cant go to 5N. Let her know would send referral to [facility] if n is unable to accept. Will cont following as needed for dc needs.
[2021-01-24 16:00] VITALS: BP 122/69
--- NOTE | 2021-01-24 18:30 | NUR ---
PT MORE ALERT TODAY BUT STILL HAVING CONFUSION STARTING IN LATE AFTERNOON. THERAPIST LIFTED PT TO RECLINER CHAIR TO SIT UP FOR A WHILE. EATING AND DRINKING WELL. PAIN PILL NOT GIVEN THIS AM TO PREVENT SOMMULENCE AT TIME OF THERAPY AND HE TOLERATED IT WELL. AT BEDSIDE MOST OF DAY. 5N CONSULT PLACED LATED TODAY.
[2021-01-24 19:38] VITALS: BP 139/85
[2021-01-24 23:14] LABS: BE(vivo) -1.9 mmol/L (-2 to +3); HCO3 21.8 mmol/L (22.0-26.0); PCO2 33.4 mmHg (35.0-45.0); PO2 203.9 mmHg (80.0-100.0); pH 7.432 (7.360-7.450); sO2 99.4 % (92.0-98.0)
--- NOTE | 2021-01-24 23:15 | NUR ---
FEED INSPECTION SUPERVISOR ACTIVATED FOR HYPOXIA AND DECREASED AMS. SEE RAPID RESPONSE DOCUMENTATION FOR FURTHER DETAILS. PT REMAINED ON THE UNIT.
[2021-01-24 23:26] LABS: HEMATOCRIT 34.7 % (42.0-52.0); HEMOGLOBIN 11.5 gm/dL (14.0-18.0); MCHC 33.1 g/dL (28.0-37.0); MCV 87.7 fL (80.0-100.0); RBC 3.96 mil/uL (4.50-6.00); RDW 14.7 % (10.5-14.5); WBC 8.4 thou/uL (4.0-11.0)
[2021-01-24 23:35] VITALS: BP 115/82
[2021-01-24 23:37] LABS: CREATININE 1.1 mg/dL (0.7-1.3); POTASSIUM 3.6 mmol/L (3.5-5.1)
--- NOTE | 2021-01-25 02:32 | NUR ---
RECEIVED CARE OF THIS PATIENT AT 1900. PATIENT WAS ALERT AND ORIENTED X4. A COUPLE OF HOURS LATER PATIENT BECAME DISORIENTED AND COULD NOT EVEN GIVE ME HIS LAST NAME. O2 SAT WAS ONLY IN THE 70'S. RAPID RESPONSE WAS CALLED AND PATIENT WAS PUT ON CPAP WIHT O2. VS WERE SRABLE AND ACCUCHECK WAS WNL. O2 SAT WAS SOON AT 100%. PATIENT STATED WAS SLEEPY. SLEPT MOST OF THE NIGHT AFTER THAT. DENIES PAIN.
[2021-01-25 04:57] VITALS: BP 153/69
[2021-01-25 07:08] VITALS: BP 151/90
[2021-01-25 16:23] VITALS: BP 121/73
--- NOTE | 2021-01-25 16:53 | NUR ---
PT ALERT AND ORIENTED TIMES TWO, CONFUSED. VSS. PT DENEIS PAIN/SOA. DRESSING TO RIGHT LOWWER LEG CHANGED. PT TOLERATES MEDS AND MEALS. UP TO THE CHAIR FOR MOST OF THE DAY. PT AT BEDSIDE THIS EVENING. [facility]
[2021-01-25 19:56] VITALS: BP 119/56
--- NOTE | 2021-01-26 04:05 | NUR ---
RECEIVED CARE OF THIS PATIENT AT 1900. PATIENT ALERT AND ORIENTED X4 WITH PERIODS OF FORGETFULNESS. DENIES PAIN. O2 AT 2L/NC WHILE AWAKE. CPCP AT HS WITH 2L O2 BLEED IN. SLEPT MOST OF NIGHT.
[2021-01-26 05:38] VITALS: BP 148/86
[2021-01-26 07:40] VITALS: BP 129/87
--- NOTE | 2021-01-26 12:08 | NUR ---
PT ALERT AND ORIENTED TIMES FOUR FLAT AFFECT, SLOW TO RESPOND TO QUESTIONS. VSS. C/O PAIN WHEN MOVING LEG. DRESSING TO RIGHT LEG CHANGED. PT UP TO THE CHAIR. PT TOLERATES MEDS AND MEALS. PT AT BEDSIDE THIS AFTERNOON. WILL CONTINUE TO MONITOR.
--- NOTE | 2021-01-26 12:53 | NUR ---
[facility] acute rehab has no beds. Cm visited with Macey and his Adriana at bedside. Cm provided active listening and cont. education about skilled rehab and safe discharge. Cm Provided [facility] skilled list of choices. It was ok to send referral [facility] and [facility]. Adriana is unable to drive and would like facility not far from here in case she would have to take a cab. Liaison from both [facility] and [facility] will visit with macey and his adriana. Will need insurance auth from [facility].
[2021-01-26 15:39] VITALS: BP 147/93
[2021-01-26 19:40] VITALS: BP 173/153
--- NOTE | 2021-01-26 23:51 | NUR ---
ASSUMED PT CARE AT AROUND 1915 HRS. PT'S SPOUSE IN ROOM. PT C/O NAUSEA.ABDOMEN DISTENDED. GIVEN ZOFRAN X 1. THEN AFTER ABOUT 15 MINS, PT VOMITED ABOUT 1000CC OF DARK BROWN EMESIS-HE THEN SAID HE FEELS BETTER.IMMOBILIZER TO RLE. AT THIS TIME HE IS OBSERVED IN BED WITH EYES CLOSED, CPAP IN PLACED WELL CONT PULSE OX.
[2021-01-27 04:25] VITALS: BP 164/86
[2021-01-27 07:20] VITALS: BP 125/100; BP 152/100
--- NOTE | 2021-01-27 09:20 | NUR ---
Xavier visited with macey at bedside, he has picked [facility] for skilled rehab because it is closer to his home, for his to get a ride to see him while he is at skilled rehab. Cm notified [facility] and they will start auth with [facility].
[2021-01-27 16:00] VITALS: BP 112/56
--- NOTE | 2021-01-27 17:50 | NUR ---
Pt A & O x3. Pt is lethargic this shift. Pt Vs stable. Pt has gonzalez in place. Pt had small BM in place. pt received medications as ordered and also received PRN medications. Pt is NWB to R lower extremity noted. PT worked with PT/OT this shift. Pt is on 2 L of 02 per nasal cannula. Pt wound dressing changes by wound team. Pt is able to make needs known
[2021-01-27 21:19] VITALS: BP 115/59
--- NOTE | 2021-01-28 04:12 | NUR ---
ASSUMED CARE AT APPROX 1930 OF 01/27. PATIENT IS A&OX3, REORIENTED TO PLACE. ON CONTINUOUS 2L OF O2 VIA NC. DENIES SHORTNESS OF BREATH. BROOKS TO DD, DRANING SHERRY COLORED URINE. PATIENT REPORTED SOME ABDOMINAL DISCOMFORT DUE TO CONSTIPATION. PRN PO LAXITIVES AND SUPPOSITORY ADMINISTERED, PATIENT WAS ABLE TO HAVE A MODERATE FORMED STOOL. REPORTED SOME ABDOMINAL RELIEF AFTER HAVING A BOWEL MOVEMENT. NO FURTHER COMPLAINTS OF NAUSEA OR VOMITING THIS SHIFT. REMAINS NWB ON RLE, COLD THERAPY IS MANAGING PAIN ADEQUATELY. DRESSING OVER RLE IS IN PLACE AND INTACT. PATIENT REQUESTED FOR PRN TRAZADONE SLEEP AID, CPAP ON AT HS. SLEEPING DURING ROUNDS. FALL PRECAUTIONS IN PLACE, CALL LIGHT WITHIN REACH. WILL CONTINUE TO MONITOR.
--- NOTE | 2021-01-28 07:49 | NUR ---
Faxed updates to [facility] for skilled auth request.
--- NOTE | 2021-01-28 09:57 | HC ---
[facility] [place] [place] [address] CONSULTATION Name: CHON BOYER Room #: 438-P [facility] M.R.#: [id number] Admission: 01/21/21 Attend Phys: Curt Merritt, Discharge: Date of : 52 Report #: [id number] THIS REPORT FOR: cc: Silvano Sheriff Cory T. DO Althoff, Jeffrey R. MD ~ DATE OF SERVICE: 01/27/2021 CHIEF COMPLAINT: Multiple bullae to the right lower extremity. HISTORY OF PRESENT ILLNESS: This is a 70-year-old male patient who fell while carrying some boxes. He fell onto his right knee, sustaining a right tibial plateau fracture. On 01/22/2021, he underwent an open reduction internal fixation of a right bicondylar tibial plateau fracture. He has developed fracture blisters and I have been asked to see him with regard to their care. PAST MEDICAL HISTORY: Significant for coronary artery disease, known left-sided weakness, hypertension, hyperlipidemia. SOCIAL HISTORY: Negative for tobacco use. , accompanied by his . He has some discomfort. He is mainly somnolent in bed and does awaken to tactile stimulation and to some verbal stim. MEDICATIONS: Include metoprolol, escitalopram, trazodone, cyanocobalamin. ALLERGIES: CODEINE AND LORAZEPAM. SOCIAL HISTORY: Negative for alcohol or tobacco use. FAMILY HISTORY: Noncontributory. REVIEW OF SYSTEMS: Very limited due to the patient's level of alertness and cooperativeness. His all pertinent positives would be covered as best as possible within the history of present illness as detailed and are otherwise unobtainable. PHYSICAL EXAMINATION: VITAL SIGNS: At this time include temperature 36.8, pulse 120, respiratory rate of 19, blood pressure 152/100. GENERAL: This is a chronically ill-appearing male patient who appears to be in minimal distress. HEENT: Head normocephalic. Nose and throat are clear. NECK: Supple. LUNGS: Diminished. HEART: Irregular without murmur. ABDOMEN: Soft, bowel sounds present. [facility] [address] [place] [address] CONSULTATION Name: CHON BOYER Room #: 438-P [facility] ..#: [id number] Admission: 01/21/21 Attend Phys: Curt Merritt, Discharge: Date of : 52 Report #: [id number] EXTREMITIES: Lower extremities demonstrate surgical incisions to the right knee, but are intact. The dressings are a little bit moist. We have replaced them with new bordered alginate surgical dressings over the incisions. He has multiple bullae involving the right pretibial region as well as the lower leg, ankle, and dorsal foot. Some/all are draining spontaneously, not appear to be infected. I have unroofed at the bedside and cleansed the bases. NEUROLOGIC: The patient is mostly somnolent, does awaken, answers a few questions. LABORATORY STUDIES: Include white blood cell count 8.4 with a hemoglobin of 11.5, sodium 140, potassium 3.6, chloride 105, CO2 of 24, BUN 25, creatinine 1.1, glucose 102. CLINICAL IMPRESSION: 1. Multiple fracture blisters to the right lower extremity and foot following right tibial plateau fracture. 2. Right tibial plateau fracture, status post open reduction internal fixation. 3. Dyspnea on exertion. 4. Coronary artery disease and cardiomyopathy. 5. Hypertension. 6. Hyperlipidemia. RECOMMENDATIONS: At this point in time, we will recommend Xeroform gauze followed by Stewart BATES, and Palomo wrap toes to knee on the right side, leave the bordered island type surgical dressings on the right knee and his knee immobilizer in place as ordered by Orthopedics. I have discussed this case with Dr. Agrawal, the orthopedic surgeon who was agreeable to that plan of care. I have also discussed all of these details with the patient and his at the bedside. I appreciate being asked to see him in consultation. <ELECTRONICALLY SIGNED> By: Rajiv Rain MD 01/28/21 [id number] Rajiv Rain MD /nt
--- NOTE | 2021-01-28 11:03 | NUR ---
Assess for length of stay. admit following fall with right tib plateau fracture and required surgical intervention. Hx alzheimers dementia. On regular diet and tolerating. Was constipated and received stool softners, bowel movement on 01/27. BMI 30. Place at low nutrition risk
--- NOTE | 2021-01-28 15:21 | NUR ---
at 0950 had to call IT due to not being able to get into chart to chart assessment. I am able to see and chart in the eMAR and see orders and results. TICKET #[id number] was given from IT. no resolve. Called back at 1038 to see if there was any luck with getting it to work. Still no resolve, IT stated they were still working on it. called back at 1215, still no resolve. Finally back online and able to chart at 1307.
--- NOTE | 2021-01-28 15:27 | NUR ---
Donell received from ernie for [facility]. No beds today. Dc Sunday01/29/21 at 1230 wheel chair transportation has already been arranged by [facility]. Chart copy requested. call hemant with [facility] [phone] to let her know he is still ready for dc on 01/29/21 or if anything changes is dc time since transportation is all ready set up. Bedside nurse to call report to [phone] ask for post acute. Fax dc orders to [phone].
[2021-01-28 15:33] VITALS: BP 115/64
[2021-01-28 20:25] VITALS: BP 115/59
[2021-01-28 20:31] VITALS: BP 107/84
[2021-01-28 21:17] VITALS: BP 107/84
--- NOTE | 2021-01-29 01:42 | NUR ---
UPON SHIFT REPORT, PT AT BEDSIDE. IV TO RIGHT HAND NOTED TO BE RED WITHOUT TENDERNESS, SLIGHT EDEMA NOTED. IV TO BE DISCONTINUED, NEW IV SITE TO BE OBTAINED. UPON SHIFT ASSESSMENT, PT AOX4. PT DENIES PAIN. PT HAS PRN PO NORCO Q4HR AND PRN IV MORPHINE Q6HR AVAILABLE. PT DENIES SOB WHILE AT REST, NOTED TO HAVE SOB WITH EXERTION, REMAINS ON 1.5L O2 VIA NC WITHOUT DESATURATION. CPAP WORN AT HS. PT TOLERATING PO INTAKE OF FLUIDS AND REGULAR DIET WITHOUT ISSUE. PT WITHOUT NAUSEA OR EMESIS. PT VOIDING PER BROOKS CATHETER, SHERRY URINE NOTED, NO BM THIS SHIFT. PT RESTING IN BED THROUGHOUT SHIFT, FREQUENT REPOSITIONING ENCOURAGED. PT REFUSING REPOSITIONING ASSISTANCE DUE TO COMFORT PREFERENCES. PT INTERMITTENTLY REPORTING NUMBNESS IN RLE. CAPILLARY REFILL LESS THAN 3SEC, PERIPHERAL PULSES PALPABLE IN ALL EXTREMITIES. PT ENCOURAGED TO NOTIFY STAFF FOR ALL NEEDS, CALL LIGHT WITHIN REACH, BED ALARM ON, BED LOCKED IN LOWEST POSITION, FREQUENT MONITORING WILL CONTINUE.
[2021-01-29 05:53] LABS: HEMATOCRIT 31.5 % (42.0-52.0); HEMOGLOBIN 10.4 gm/dL (14.0-18.0); MCH 28.8 pg (26.0-34.0); MCV 87.1 fL (80.0-100.0); RBC 3.62 mil/uL (4.50-6.00); RDW 15.1 % (10.5-14.5); WBC 7.3 thou/uL (4.0-11.0)
[2021-01-29 06:09] LABS: CALCIUM 8.4 mg/dL (8.5-10.1); MAGNESIUM 2.2 mg/dL (1.8-2.4); POTASSIUM 3.4 mmol/L (3.5-5.1)
[2021-01-29 07:46] VITALS: BP 130/80
[2021-01-29 08:08] VITALS: BP 130/80
--- NOTE | 2021-01-29 09:22 | NUR ---
A/O X 4. ON 2 L O2 VIA NASAL CANNULA. NONWEIGHT BEARING FOR 3 MONTHS. CPAP @ NOC. POLAR PACK TO RIGHT LEG. NO PAIN NOTED AT THIS TIME. NO IV ACCESS. POSSIBLE D/C PLAN TO [facility] TODAY.
--- NOTE | 2021-01-29 10:51 | NUR ---
DR ALICEA PUT IN D/C ORDERS FOR PATIENT SO WE COULD GET THEM FAXED OVER TO [facility] BEFORE 12:30 PM PICK-UP. D/C ORDERS AND SUMMARY FAXED TO [phone] AND MAICOL WAS CALLED TO LET HER KNOW THE FAX WAS THERE.
== END 2021-01-29 13:00 | DRG 492 ==
LOC: ER 15:09 → EROBS 17:43 → 4S 17:43
PROVIDERS: Nurse Practitioner; Nurse Practitioner Family; Orthopaedic Surgery Sports Medicine; Surgery; ADMIT Surgery; ATTEND Surgery
PROC: 0QSG04Z Reposition Right Tibia with Internal Fixation Device, Open Approach (ICD-10-PCS; principal; 2021-01-22)
PROC: 5A09357 Assistance with Respiratory Ventilation, Less than 24 Consecutive Hours, Continuous Positive Airway Pressure (ICD-10-PCS; 2021-01-24)
PROC: 5A09357 Assistance with Respiratory Ventilation, Less than 24 Consecutive Hours, Continuous Positive Airway Pressure (ICD-10-PCS; 2021-01-25)
PROC: 5A09357 Assistance with Respiratory Ventilation, Less than 24 Consecutive Hours, Continuous Positive Airway Pressure (ICD-10-PCS; 2021-01-27)
PROC: 5A09357 Assistance with Respiratory Ventilation, Less than 24 Consecutive Hours, Continuous Positive Airway Pressure (ICD-10-PCS; 2021-01-28)
DX: S82.141A Displaced bicondylar fracture of right tibia, initial encounter for closed fracture (principal); G93.41 Metabolic encephalopathy; J96.01 Acute respiratory failure with hypoxia; D62 Acute posthemorrhagic anemia; I42.9 Cardiomyopathy, unspecified; F05 Delirium due to known physiological condition; R33.9 Retention of urine, unspecified; I10 Essential (primary) hypertension; I25.10 Atherosclerotic heart disease of native coronary artery without angina pectoris; E78.5 Hyperlipidemia, unspecified; S90.821A Blister (nonthermal), right foot, initial encounter; G47.00 Insomnia, unspecified; K21.9 Gastro-esophageal reflux disease without esophagitis; R40.0 Somnolence; R53.81 Other malaise; Z20.822 Contact with and (suspected) exposure to COVID-19; W18.39XA Other fall on same level, initial encounter; Z95.2 Presence of prosthetic heart valve; Z88.6 Allergy status to analgesic agent; Z88.8 Allergy status to other drugs, medicaments and biological substances; Z95.5 Presence of coronary angioplasty implant and graft; Z23 Encounter for immunization; Y93.89 Activity, other specified; Y92.89 Other specified places as the place of occurrence of the external cause; Y99.8 Other external cause status
CPT/HCPCS: 10195; 50010; 50101; 50341; 50386; 50954; 51320; 51412; 52001; 52282; 56528; 56667; 57091; 57180; 58409; 58410; 58411; 58981; 58982; 58983; 59064; 59065; 59066; 59067; 59068; 59069; 59070; 62110; 62900; 70005